=== PATIENT | female | born 1935 | race African-American/Black ===

== ENCOUNTER 2023-05-18 19:58 | Emergency (ER) | payer OTHER ==
[~2023-05-18] VITALS: Ht 170.2 cm; Wt 136.1 kg
[2023-05-18 20:10] VITALS: BP_SYST 139; PULSE 60; RESP 18; TEMP 98.5; O2SAT 100
[2023-05-18 21:15] VITALS: BP_SYST 173; PULSE 75; RESP 18; TEMP 98.8; O2SAT 98
[2023-05-18] MEDS ORDERED: NACL 0.9% 1,000 ML IV ONE (22:00)
[2023-05-18 22:24] LABS: BASOPHILS # (AUTO) 0.1 K/uL (0.0-0.2); BASOPHILS % (AUTO) 0.6 % (0.0-2.0); EOSINOPHILS # (AUTO) 0.1 K/uL (0.0-0.4); EOSINOPHILS % (AUTO) 0.8 % (0.0-4.0); HEMATOCRIT 36.7 % (36-48); HEMOGLOBIN 11.8 g/dL (12.0-16.0); LYMPHOCYTES # (AUTO) 1.9 K/uL (1.0-5.5); LYMPHOCYTES % (AUTO) 21.7 % (20.5-51.5); MEAN CORPUSCULAR HEMOGLOBIN 29 pg (27-31); MEAN CORPUSCULAR HGB CONC 32 % (32-36); MEAN CORPUSCULAR VOLUME 90 fL (79.0-98.0); MONOCYTES # (AUTO) 0.7 K/uL (0.0-1.0); MONOCYTES % (AUTO) 7.7 % (1.7-9.3); NEUTROPHILS # (AUTO) 6.1 K/uL (1.8-7.7); NEUTROPHILS % (AUTO) 69.2 % (40.0-70.0); PLATELET COUNT (AUTO) 186 K/uL (130-430); RED BLOOD CELL COUNT(AUTO) 4.06 MIL/uL (4.2-6.2); RED CELL DISTRIBUTION WIDTH 16.7 % (9.0-15.0); WHITE BLOOD COUNT (AUTO) 8.9 K/uL (4.8-10.8)
[2023-05-18 22:28] LABS: ANION GAP 1 (5-15); CALCIUM 9.6 mg/dL (8.4-11.0); CARBON DIOXIDE 38 mmol/L (23-29); CHLORIDE 100 mmol/L (98-107); CREATININE 1.73 mg/dL (0.55-1.30); GLUCOSE 291 mg/dL (74-106); SODIUM SERUM 139 mmol/L (136-145); UREA NITROGEN, BLOOD 43 mg/dL (8-21)
[2023-05-18 22:29] LABS: POTASSIUM 5.8 mmol/L (3.5-5.1)
[2023-05-18 22:35] LABS: PROTHROMBIN TIME 10.3 SECS (9.5-12.5)
[2023-05-18 22:39] LABS: BILIRUBIN,DIRECT 0.1 mg/dL (0.0-0.3)
[2023-05-18 22:40] LABS: ALANINE AMINOTRANSFERASE 40 U/L (12-78); ALBUMIN 3.1 g/dL (3.4-4.8); ASPARTATE AMINOTRANSFERASE 23 U/L (10-37); TOTAL PROTEIN, SERUM 7.3 g/dL (6.4-8.3)
[2023-05-18 22:41] LABS: TOTAL BILIRUBIN 0.3 mg/dL (0.0-1.0)
[2023-05-18 22:45] LABS: INFLUENZA TYPE A Negative (NEGATIVE); INFLUENZA TYPE B NEGATIVE (NEGATIVE)
[2023-05-18] MEDS ORDERED: SILVER SULFADIAZINE 1%, 25 GM TOPICAL CREAM (SSD) TP ONE (23:00)
[2023-05-19] MEDS ORDERED: SODIUM POLYSTYRENE SULFONATE 15 GM/60 ML UDBTL PO ONE (03:00)
[2023-05-19] MEDS ORDERED: HEPA500015 SUBCUT (04:20)
[2023-05-19] MEDS ORDERED: ZOLP5TAB2 PO (04:20)
[2023-05-19] MEDS ORDERED: LOSA-412 PO (04:20)
[2023-05-19] MEDS ORDERED: ANAS1TAB51 PO (04:20)
[2023-05-19] MEDS ORDERED: FOLI-43 PO (04:20)
[2023-05-19] MEDS ORDERED: FURO-150 PO (04:20)
[2023-05-19] MEDS ORDERED: PRO40 PO (04:20)
[2023-05-19] MEDS ORDERED: AMLO5TAB4 PO (04:20)
[2023-05-19] MEDS ORDERED: LACT1CAP89 PO (04:20)
[2023-05-19] MEDS ORDERED: BISA-140 RC (04:20)
[2023-05-19] MEDS ORDERED: FER300L PO (04:20)
[2023-05-19] MEDS ORDERED: LORA-259 PO (04:20)
[2023-05-19] MEDS ORDERED: METO-442 PO (04:20)
[2023-05-19] MEDS ORDERED: GABA-534 PO (04:20)
[2023-05-19] MEDS ORDERED: ASA81 PO (04:20)
[2023-05-19] MEDS ORDERED: ACET325T PO (04:21)
[2023-05-19] MEDS ORDERED: IPRA4AER INH (04:21)
[2023-05-19] MEDS ORDERED: INSU100V44 (04:21)
[2023-05-19] MEDS ORDERED: VITA250012 PO (04:21)
[2023-05-19] MEDS ORDERED: POTA8TAB66 PO (04:21)
[2023-05-19] MEDS ORDERED: MOM PO (04:21)
[2023-05-19] MEDS ORDERED: VANC125C10 PO (04:21)
[2023-05-19] MEDS ORDERED: ACET325T53 PO (04:21)
[2023-05-27] MEDS ORDERED: SER25 PO (14:19)
[2023-05-27] MEDS ORDERED: INSU100V9 SUBCUT (14:24)
[2023-05-27] MEDS ORDERED: FIDA200T PO (14:26)
== END 2023-05-19 00:05 | disposition left against medical advice (07) ==
LOC: SED 19:58
DX: A04.72 Enterocolitis due to Clostridium difficile, not specified as recurrent (principal); R41.82 Altered mental status, unspecified; R14.0 Abdominal distension (gaseous); R19.7 Diarrhea, unspecified; Z79.899 Other long term (current) drug therapy; Z20.822 Contact with and (suspected) exposure to COVID-19
CPT/HCPCS: 36415; 80048; 80076; 83605; 83880; 84484; 85025; 85610-TC; 85730-TC; 87040; 93005; 99284